=== PATIENT | female | born 1960 | race Caucasian/White ===

== ENCOUNTER → 2017-06-04 | Outpatient (CLI) | payer OTHER | LOC: BMCIMAGING 08:12 | PROVIDERS: ATTEND Family Medicine | DX: Z12.31 Encounter for screening mammogram for malignant neoplasm of breast (principal) ==

== ENCOUNTER → 2017-07-06 | Outpatient (CLI) | payer OTHER | LOC: BMCIMAGING 09:39 | PROVIDERS: ATTEND Family Medicine | DX: R92.8 Other abnormal and inconclusive findings on diagnostic imaging of breast (principal) ==

== ENCOUNTER → 2018-08-12 | Outpatient (CLI) | payer OTHER | LOC: BMCIMAGING 07:28 | DX: Z12.31 Encounter for screening mammogram for malignant neoplasm of breast (principal) ==